=== PATIENT | male | born 1975 | race Caucasian/White ===

== ENCOUNTER → 2019-09-19 | Outpatient (REF) | payer OTHER | LOC: M SFHCLERA 10:56 | PROVIDERS: ATTEND Physician Assistant | DX: J02.9 Acute pharyngitis, unspecified (principal) ==

== ENCOUNTER → 2020-02-17 | Outpatient (REF) | payer OTHER | LOC: M LAB REF 08:28 | PROVIDERS: ATTEND Ophthalmology | DX: D23.122 Other benign neoplasm of skin of left lower eyelid, including canthus (principal) ==

== ENCOUNTER 2021-04-10 16:56 | Emergency (ER) | payer OTHER ==
[~2021-04-10] VITALS: Ht 170.2 cm; Wt 75.5 kg
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
[2021-04-10] MEDS ORDERED: LIDOCAINE 1% MDV 20ML VIAL SC ONE (19:40)
[2021-04-10] MEDS ORDERED: MORPHINE 10 MG/ML 1ML VIAL (J2270) IM ONE (19:40)
[2021-04-10] MEDS ORDERED: BOOSTRIX/ADACEL VACCINE (DIPHTH/PERTUSS/ACELL/TETANUS) 0.5ML SYR IM ONE (19:40)
[2021-04-10 20:04] VITALS: BP 148/89
[2021-04-10] MEDS ORDERED: NEOSPORIN OINT 0.9 GM PKT TOP ONE (20:45)
[2021-04-10] MEDS ORDERED: NORCO 5/325MG TABLET (BULK FOR ED) PO ONE (20:55)
== END 2021-04-10 21:08 | disposition home or self-care (01) ==
LOC: M ED 16:56
DX: S01.21XA Laceration without foreign body of nose, initial encounter (principal); S02.2XXB Fracture of nasal bones, initial encounter for open fracture; S00.83XA Contusion of other part of head, initial encounter; W27.1XXA Contact with garden tool, initial encounter; Y92.59 Other trade areas as the place of occurrence of the external cause; Y93.89 Activity, other specified; Y99.8 Other external cause status
CPT/HCPCS: 12013; 70450; 70486; 90471; 90715; 96374; 99283; J2270

== ENCOUNTER → 2025-07-11 | Outpatient (REF) | payer OTHER | LOC: M LAB REF 10:23 | PROVIDERS: ATTEND Physician Assistant | DX: B34.9 Viral infection, unspecified (principal) ==